=== PATIENT | male | born 1995 | race Caucasian/White ===

== ENCOUNTER 2017-06-09 11:36 | Emergency (ER) | payer OTHER ==
[2017-06-09 11:45] VITALS: BP 151/81; PULSE 61; RESP 16; TEMP 99.4; O2SAT 96
--- NOTE | 2017-06-09 11:51 | EDPHY ---
H & P Time Seen by Provider: 06/09/17 11:51 HPI/ROS: Chief complaint. Sore throat HPI. Patient is a healthy 22-year-old male visiting from [place] on leave from the [employer]. He has developed sore throat over 1 day. He is visiting friends and family and he has with friends who are being treated for strep. The patient has had strep previously and it feels similar. Fever this morning to 99.4 degrees. Some upper airway congestion. However no cough, shortness of breath, chest pain, abdominal pain, vomiting or diarrhea, rash. ROS Constitutional. fever, no weakness Eyes. no problems with vision ENT. Sore throat Cardiovascular. no chest pain Respiratory. no shortness of breath, no cough Abdominal. no abdominal pain, no nausea/vomiting, no diarrhea . no problems urinating MS. no calf pain/swelling, no neck/back pain, no joint pain Skin. no rash Lymph. no swollen glands Neuro. no headache, no dizziness, no difficulty walking or with speech Past Medical/Surgical History: Healthy Social History: , nonsmoker, no alcohol Smoking Status: Never smoked Physical Exam: General Appearance: Alert pleasant well-developed male mild distress vital signs show heart temp 37.4degrees Eyes: Pupils equal and round no pallor or injection. ENT, tympanic membranes are normal. Pharynx injected with some exudate. Mucous membranes are moist. Anterior cervical adenopathy. Respiratory: There are no retractions, lungs are clear to auscultation. Cardiovascular: Regular rate and rhythm. Gastrointestinal: Abdomen is soft and nontender, no masses, bowel sounds normal. Neurological: Awake and alert, sensory and motor exams grossly normal. Skin: Warm and dry, no rashes. Musculoskeletal: Neck is supple nontender. Extremities symmetrical, full range of motion. Psychiatric: Patient is oriented X 3, there is no agitation. Constitutional: Initial Vital Signs Temperature (C) 37.4 C 06/09/17 11:41 Heart Rate 61 06/09/17 11:41 Respiratory Rate 16 06/09/17 11:41 Blood Pressure 151/81 H 06/09/17 11:41 O2 Sat (%) 96 06/09/17 11:41 O2 Delivery Mode Room Air Allergies/Adverse Reactions: No Known Allergies Allergy (Verified 06/09/17 11:45) Home Medications: Medication Instructions Recorded NO HOME MEDS 04/24/10 Penicillin V Potassium [Penicillin 500 mg PO BID #14 tab 06/09/17 VK] Medical Decision Making ED Course/Re-evaluation: Patient is given Decadron in the emergency department. Patient and I discussed treatment plan including criteria for return importance of follow-up and further evaluation. He expresses understanding and agreement Differential Diagnosis: I considered strep, mono, viral exanthem. The patient is spending time with friends who have been diagnosed with strep and are being treated for strep. - Data Points Laboratory Results: 06/09/17 11:50 Group A Strep Screen Pending Departure - Departure Disposition: Home, Routine, Self-Care Clinical Impression: Acute streptococcal pharyngitis Condition: Good Instructions: Strep Throat (ED) Additional Instructions: Drink plenty of fluids and stay hydrated. Tylenol 1000 mg every 4-6 hours, ibuprofen 600 mg every 6 hr as needed for fever. Penicillin as antibiotic. Return for worsening symptoms. Recheck in 2-3 days if not improving Referrals: NONE *PRIMARY CARE P,. [Primary Care Provider] - As per Instructions Prescriptions: Penicillin V Potassium [Penicillin VK] 500 mg PO BID #14 tab
[2017-06-09] MEDS ORDERED: DEXAMETHASONE 4 MG TAB PO ONE (11:58)
== END 2017-06-09 12:08 | disposition home or self-care (01) ==
LOC: CED 11:36
DX: J02.0 Streptococcal pharyngitis (principal)
CPT/HCPCS: 87880-PO